=== PATIENT | female | born 1965 | race Caucasian/White ===

== ENCOUNTER 2022-06-22 08:00 | Day surgery (SDC) | payer BC, SELFPAY ==
--- NOTE | 2022-06-21 11:55 | HO.ANESPROP2 ---
Documented by User: Miranda March NP 06/21/22 11:55 HPI - Anesthesia Eval Consult details Narrative: 56yo M for Colonoscopy [facility] Past Medical History Medical History Colon polyps Depression High cholesterol HTN (hypertension) Hypothyroid Nephrolithiasis CRYSTAL (obstructive sleep apnea) Surgical History Surgical History History of back surgery History of colonoscopy History of hysterectomy History of lumpectomy of left breast Hx of salpingo-oophorectomy, bilateral Social History Social History Patient Tobacco Use Status: Former Tobacco user Quit Date: 06/2009 Use of substances other than those prescribed or required for medical reasons: Yes Substance Use Type Other:: EDIBLE Substance Use Frequency: Occasionally Are you DNR?: No Advance Directives: No Advance Directives Information Provided: Yes Meds Allergies Allergy/AdvReac Type Severity Reaction Status Date / Time No Known Allergies Allergy Verified 06/22/22 08:09 [No Known Allergies*] Home Medications Medication Instructions Recorded Confirmed Last Taken Type Digestive Enzyme (acidoph,pec) 50 mg PO DAILY 06/22/22 06/22/22 Unknown History Vitamin D3 2,000 units PO DAILY 06/22/22 06/22/22 Unknown History anastrozole 1 mg tablet 1 mg PO BEDTIME 06/22/22 06/22/22 Unknown History aspirin 81 mg tablet 81 mg PO DAILY 06/22/22 06/22/22 Unknown History atorvastatin 20 mg tablet 20 mg PO BEDTIME 06/22/22 06/22/22 Unknown History bacillus coagulans-inulin 1 cap PO 06/22/22 Unknown History billion cell-250 mg capsule (Probiotic with Prebiotic) bupropion HCl 300 mg 24 hr tablet, 300 mg PO QAM 06/22/22 06/22/22 Unknown History extended release d-mannose 500 mg capsule 1,000 mg PO DAILY 06/22/22 06/22/22 Unknown History irbesartan 150 mg tablet 150 mg PO DAILY 06/22/22 06/22/22 Unknown History levothyroxine 88 mcg tablet 88 mcg PO DAILY 06/22/22 06/22/22 Unknown History (Synthroid) nitrofurantoin 50 mg capsule 50 mg PO DAILY 06/22/22 06/22/22 Unknown History potassium citrate 10 mEq (1,080 10 meq PO BID 06/22/22 06/22/22 Unknown History mg) tablet,extended release Exam Exam Date and Time: June 21, 2022 1155 Assessment and Plan Assessment Anesthesia Assessment: Chart Reviewed Documented by User: Ann Davila MD 06/22/22 08:54 [facility] Active Problems Active Problems: Increased BMI CRYSTAL. Uses CPAP nightly Vertigo Past Medical History Medical History Colon polyps Depression High cholesterol HTN (hypertension) Hypothyroid Nephrolithiasis CRYSTAL (obstructive sleep apnea) Family History Family history of problems with anesthesia: No Surgical History Surgical History History of back surgery History of colonoscopy History of hysterectomy History of lumpectomy of left breast Hx of salpingo-oophorectomy, bilateral History of Problems with Anesthesia: No Social History Social History Patient Tobacco Use Status: Former Tobacco user Quit Date: 06/2009 Use of substances other than those prescribed or required for medical reasons: Yes Substance Use Type Other:: EDIBLE Substance Use Frequency: Occasionally Are you DNR?: No Advance Directives: No Advance Directives Information Provided: Yes Meds Allergies Allergy/AdvReac Type Severity Reaction Status Date / Time No Known Allergies Allergy Verified 06/22/22 08:09 [No Known Allergies*] Home Medications Medication Instructions Recorded Confirmed Last Taken Type Digestive Enzyme (acidoph,pec) 50 mg PO DAILY 06/22/22 06/22/22 Unknown History Vitamin D3 2,000 units PO DAILY 06/22/22 06/22/22 Unknown History anastrozole 1 mg tablet 1 mg PO BEDTIME 06/22/22 06/22/22 Unknown History aspirin 81 mg tablet 81 mg PO DAILY 06/22/22 06/22/22 Unknown History atorvastatin 20 mg tablet 20 mg PO BEDTIME 06/22/22 06/22/22 Unknown History bacillus coagulans-inulin 1 cap PO 06/22/22 Unknown History billion cell-250 mg capsule (Probiotic with Prebiotic) bupropion HCl 300 mg 24 hr tablet, 300 mg PO QAM 06/22/22 06/22/22 Unknown History extended release d-mannose 500 mg capsule 1,000 mg PO DAILY 06/22/22 06/22/22 Unknown History irbesartan 150 mg tablet 150 mg PO DAILY 06/22/22 06/22/22 Unknown History levothyroxine 88 mcg tablet 88 mcg PO DAILY 06/22/22 06/22/22 Unknown History (Synthroid) nitrofurantoin 50 mg capsule 50 mg PO DAILY 06/22/22 06/22/22 Unknown History potassium citrate 10 mEq (1,080 10 meq PO BID 06/22/22 06/22/22 Unknown History mg) tablet,extended release Exam Height,Weight and Vital Signs: Height 5 ft 1 in Weight 89.584 kg Vital Signs Temp Pulse Resp BP Pulse Ox O2 Del Method 06/22/22 08:23 98.7 F 85 16 151/80 H 97 Room Air Airway Mallampati Class: II TM Dist: >3cm Neck ROM: Limited (S/p fusion but good extension) Loose/Missing/Broken Teeth: No (Denies broken or loose teeth) Heart: RRR Lungs: CTAB Assessment and Plan Assessment Anesthesia Assessment: Anesthesia Plan Discussed Final Anesthetic Review Family History of Problems with Anesthesia: No History of Problems with Anesthesia: No NPO: Yes ASA Class: III Final Preanesthetic Review: No Changes in Pt Med Stat, Meds/Allgs Chart Reviewed, Consent Obtained/Reviewed and Anes Risks/Benef Reviewed Patient Risk: Intermediate Procedure Risk: Low Assessment/Block/Sedation in SS: Assess/Block/Sedation-SS Anesthetic Plan Anesthetic Plan: MAC: Disposition: Standard PACU
[2022-06-22 08:16] VITALS: BMI 37.3
[2022-06-22 08:23] VITALS: BP 151/80; PULSE 85; RESP 16; TEMP 37.1; O2SAT 97
[2022-06-22] MEDS: Lactated Ringers 1,000 ML 100 ML IVCONT (08:49)
--- NOTE | 2022-06-22 08:52 | MHC.SHP ---
Pre-Procedural Eval Section A Date of Service: 06/22/22 Section B Chief Complaint: Encounter for screening for malignant neoplasm of Details of Present Illness: see H&P no changes Relevant Family History (Specify if Yes): No Relevant Social History: None Present Medications: see Short Stay Collaborative assessment Medical History: No relevant PMH Allergies: Allergies Allergy/AdvReac Type Severity Reaction Status Date / Time No Known Allergies Allergy Verified 06/22/22 08:09 [No Known Allergies*] Review of Systems Sugical H&P ROS: Negative: Constitution, Cardiovascular, Respiratory, Neurological, Psychiatric, Hem-Onc, Allergic/Immunologic, Gastrointestinal, Genitourinary, Musculoskeletal, Integumentary, Endocrine and Eyes/Ears/Nose/Throat Exam Surgical H&P Exam: Normal: HEENT, Normal: Heart, Normal: Lungs, Normal: Extremities, Normal: Abdomen, Normal: Skin and Normal: Neurological Plan Diagnosis/Plan: Unchanged I have reviewed the history and physical and performed a pertinent physical examination on my patient. No changes have occurred unless specified.
[2022-06-22 09:30] VITALS: BP 103/60; PULSE 94; RESP 16; TEMP 36.6; O2SAT 96
--- NOTE | 2022-06-22 09:31 | PM.OP ---
Brief Operative Note Date of Service: 06/22/22 Pre-op diagnosis: screening Post-op diagnosis: same Procedure: colonsocopy Surgeon: Dev Hsieh Anesthesia: MAC Was an Consulting Senior Practice Director used for this Procedure?: No Estimated blood loss (mL): 0 Pathology: none sent Condition: stable Disposition: PACU
[2022-06-22 09:44] VITALS: BP 118/64; PULSE 86; RESP 18; TEMP 36.2; O2SAT 96
[2022-06-22 09:59] VITALS: BP 132/77; PULSE 75; RESP 18; TEMP 36.2; O2SAT 96
--- NOTE | 2022-06-22 10:24 | OP_ITS ---
SURGEON: Dev Hsieh MD INDICATIONS: Colon cancer screening and family history of colon cancer. PREOPERATIVE DIAGNOSIS: POSTOPERATIVE DIAGNOSIS: PROCEDURE PERFORMED: ESTIMATED BLOOD LOSS: COMPLICATIONS: ANESTHESIA: ASSISTANTS: SPECIMENS: PROCEDURE: Colonoscopy to the terminal ileum. MEDICATIONS: Monitored anesthesia care. DESCRIPTION OF PROCEDURE Date:06/22/22: History and physical performed. The risks and benefits of the procedure were explained to the patient. Informed consent was obtained. The patient was placed in the left lateral decubitus position. A digital rectal exam was performed and was found to be normal. The Olympus pediatric video colonoscope was introduced into the rectum and advanced to cecum without difficulty. The cecum was identified by transillumination, palpation, and identification of ileocecal valve. Examination was performed. The scope was removed. He tolerated the procedure well and was returned to recovery area in stable condition. FINDINGS: The terminal ileum was normal. The visualized colonic mucosa was normal. Quality prep was good. There was mild sigmoid diverticulosis. Retroflexed examination showed some small internal hemorrhoids. IMPRESSION: Normal colonoscopy. RECOMMENDATION: 1. Follow up as needed. 2. Repeat colonoscopy is recommended in 5 years because of family history of colon cancer. MD MAYTE Mcneil/GRETA / [id number] MTDD
== END 2022-06-22 10:45 | disposition home or self-care (01) ==
PROVIDERS: PCP Internal Medicine; Visit Provider Internal Medicine Gastroenterology
PROC: 0DJD8ZZ Inspection of Lower Intestinal Tract, Via Natural or Artificial Opening Endoscopic (ICD-10-PCS; CPT 45378; principal; 2022-06-22 09:00)
DX: Z12.11 Encounter for screening for malignant neoplasm of colon (principal); Z80.0 Family history of malignant neoplasm of digestive organs; K57.30 Diverticulosis of large intestine without perforation or abscess without bleeding; K64.8 Other hemorrhoids; K59.00 Constipation, unspecified; E78.00 Pure hypercholesterolemia, unspecified; G47.33 Obstructive sleep apnea (adult) (pediatric); I10 Essential (primary) hypertension; E03.9 Hypothyroidism, unspecified; N20.0 Calculus of kidney; N60.92 Unspecified benign mammary dysplasia of left breast; F32.A Depression, unspecified; Z79.811 Long term (current) use of aromatase inhibitors; Z79.82 Long term (current) use of aspirin; Z79.899 Other long term (current) drug therapy; Z99.89 Dependence on other enabling machines and devices; Z87.891 Personal history of nicotine dependence
CPT/HCPCS: 45378; J2250